=== PATIENT | male | born 1955 | race Caucasian/White ===

== ENCOUNTER 2021-10-26 12:21 | Emergency (ER) | payer BC, SELFPAY ==
--- NOTE | ~2021-10-26 | CT_ITS ---
EXAMINATION: CT abdomen pelvis wo con DATE: 10/26/2021 14:11 INDICATION: Left-sided flank and back pain TECHNIQUE: Computed tomography (CT) of the abdomen and pelvis was performed without intravenous contr ast. The dose-length product was 842.51 mGy-cm. Automated exposure control and iterative reconstructi on technique were employed. COMPARISON: None. FINDINGS: Lung bases are unremarkable. Heart size normal. Small hiatal hernia. There is atheroscleros is. No evidence for aneurysm. No lymphadenopathy. Small fat-containing left inguinal hernia. Colonic diverticulosis without evidence for diverticulitis. Bladder is decompressed. There might be mild blad ifrah wall thickening. Prostate gland is enlarged. No free air or free fluid. No renal/ureteral stone or hydronephrosis. Gallbladder is present. The liver, pancreas, adrenal gland s are unremarkable. There is splenomegaly. IMPRESSION: 1. Splenomegaly. 2: Possible mild bladder wall thickening, although bladder is not well distended. Consider cystitis and hypertrophy secondary to outlet obstruction. 3: Small hiatal hernia. Reviewed, dictated and finalized at location A. IMPRESSION: 1. Splenomegaly. 2: Possible mild bladder wall thickening, although bladder is not well distend ed. Consider cystitis and hypertrophy secondary to outlet obstruction. 3: Small hiatal hernia.
[2021-10-26 12:23] VITALS: BP 199/101; PULSE 59; RESP 16; TEMP 36.4; O2SAT 99
[2021-10-26] MEDS: KETOROLAC 30 MG/ML VIAL (*BKC) IM (13:00)
[2021-10-26 13:05] LABS: Basophils Absolute Auto 0.1 K/mm3 (0.0-0.1); Basophils Percent Auto 0.6 % (0.2-1.2); Eosinophils Absolute Auto 0.1 K/mm3 (0-0.3); Eosinophils Percent Auto 0.7 % (0-4.4); Hematocrit 47.1 % (42.0-52.0); Hemoglobin 16.4 g/dL (14.0-18.0); Immature Granulocyte Absolute 0.06 K/mm3 (0.00-0.031); Immature Granulocyte Percent A 0.5 % (0-0.5); Lymphocytes Absolute Auto 2.62 K/mm3 (0.9-3.2); Lymphocytes Percent Auto 21.4 % (18.3-44.2); Mean Corpuscular HGB Conc 34.8 g/dl (32-36); Mean Corpuscular Hemoglobin 32.8 pg (26-34); Mean Corpuscular Volume 94.2 fl (80-100); Mean Platelet Volume 9.8 fl (7.4-10.4); Monocytes Absolute Auto 1.3 K/mm3 (0.1-0.6); Monocytes Percent Auto 10.6 % (2.6-8.5); Neutrophils Absolute Auto 8.1 K/mm3 (1.3-6.7); Neutrophils Percent Auto 66.2 % (45.5-73.1); Platelet Count Result 194 k/mm3 (150-375); Red Cell Distribution Width 12.8 % (11.5-14.5); White Blood Count 12.3 K/mm3 (4.5-10.0)
[2021-10-26 13:06] LABS: Appearance Urine Slightly Cloudy (Clear); Bilirubin Urine 1+ (Negative); Blood Urine Negative (Negative); Color Urine Yellow (Yellow); Glucose Urine UA Negative (Negative); Ketones Urine Negative (Negative); Leukocyte Esterase Ur Negative LEU/UL (Negative); Nitrate Urine Negative (Negative); Protein Urine Negative (Negative); Specific Grav Ur >= 1.030 (1.001-1.035); Urobilinogen Urine 0.2 mg/dL (<2.0); pH Urine 5.5 (5.0-9.0)
[2021-10-26 13:10] LABS: Add Urine Microscopic? YES; Mucus Urine Rare /lpf; RBC Urine 0-2 /hpf (0-2); WBC Urine 0-3 /hpf
[2021-10-26 13:14] LABS: Alanine Aminotransferase 39 U/L (6-50); Albumin Level 5.4 g/dL (3.5-5.1); Alkaline Phosphatase 79 U/L (38-126); Anion Gap 12 mmol/L (8-16); Aspartate Amino Transferase 36 U/L (17-59); Bilirubin,Total 1.3 mg/dL (0.2-1.3); Blood Urea Nitrogen 16 mg/dL (9-20); Calcium 9.9 mg/dL (8.4-10.2); Carbon Dioxide 26 mmol/L (22-30); Chloride 104 mmol/L (98-107); Estimated CRCL calculation 69 ml/min; Estimated Glomerular Filt Rate > 60; Glucose 127 mg/dL (65-110); Potassium 4.1 mmol/L (3.4-5.0); Sodium 142 mmol/L (137-145)
[2021-10-26 13:33] VITALS: BP 164/94; PULSE 55; RESP 18; O2SAT 99
--- NOTE | 2021-10-26 13:35 | ED.BACK ---
HPI - Back Pain/Injury General Chief Complaint: Back Pain/Injury Stated Complaint: back pain Time Seen by Provider: 10/26/21 12:29 Source: patient and RN notes reviewed Mode of arrival: ambulatory Limitations: no limitations History of Present Illness HPI Narrative: This is a 66 year old male with history of CAD, CABG who presents presents for evaluation of back pain. He states he has chronic back issues but he started having flare up 1 week ago. He developed worsening pain on . Most of his pain is located left lower back , and he also report intermittent bilateral lower back pain. His pain radiates to left thigh occasionally. He has been taking ibuprofen and tylenol for his pain. He has been trying heat on his back, and he states he has some improvement. He rates his pain 4/10 currently , but he states his pain was 8 with walking. He is concerned about abdominal obstruction because he has been havin small bowel movements today. He denies any abdominal pain. He has associated nausea but no vomiting, fever, hematuria or dysuria. He denies leg weakness, numbness , tingling, saddle anesthesia, urinary retention or bowel incontinence. Related Data Allergies Allergy/AdvReac Type Severity Reaction Status Date / Time Sulfa (Sulfonamide Allergy RASH Verified 10/26/21 12:22 Antibiotics) venom-honey bee Allergy LOCAL Verified 10/26/21 12:22 Review of Systems Review of Systems: All systems reviewed & are unremarkable except as noted in HPI and below Constitutional: Constitutional: Denies chills and Denies fatigue Cardiovascular: Cardiovascular: Denies chest pain and Denies rapid heart rate Respiratory: Respiratory: Denies chest congestion Gastrointestinal: Gastrointestinal: Reports bloating, Reports constipation and Reports nausea Genitourinary: Genitourinary: Denies hematuria and Denies dysuria Musculoskeletal: Musculoskeletal: Reports back pain, Denies arthralgias and Denies joint swelling Neurologic: Denies focal weakness, Denies numbness and Denies weakness PMF Past Medical History Medical History (Updated 10/26/21 @ 19:16 by Valery Melgoza MD) Gout Heart disease (organic) Hypertension Surgical History Surgical History (Updated 10/26/21 @ 19:16 by Valery Melgoza MD) Hx of CABG Social History Social History (Updated 10/26/21 @ 19:16 by Valery Melgoza MD) Smoking status: Never smoker Exam Narrative: GENERAL: Well-appearing, well-nourished, and in no acute distress. HEAD: Normocephalic, atraumatic RESPIRATORY: No respiratory distress, Airway patent, Respirations non-labored, Clear to auscultation without rales, rhonchi or wheeze HEART: Regular rate and rhythm. No murmur heard. Normal peripheral pulses. ABDOMEN: Soft, nontender, nondistended, normal active bowel sounds. No masses. No rebound or guarding, No organomegaly. EXTREMITIES: No edema, normal strength with full range of motion. SKIN: Warm, dry, normal color without rash NEURO: Alert and oriented x3. CN 2-12 grossly intact. No focal deficits. PSYCH: Normal mood and affect. Back/Spine/Pelvis: Thoracic/Lumbar Spine: No thoracic spinal tenderness, No lumbar spinal tenderness and No straight leg raise positive Course Reevaluation(s) Reevaluation #1: I discussed with patient CT results shows splenomegaly and enlarge prostate. No Uti . he will be treatment for MSK back pain with muscle relaxers Date: 10/26/21 Time: 15:40 Vital Signs Vital signs: Vital Signs Temperature 97.6 F 10/26/21 12:23 Pulse Rate 59 L 10/26/21 12:23 Respiratory Rate 16 10/26/21 12:23 Blood Pressure 199/101 H 10/26/21 12:23 Pulse Oximetry 99 10/26/21 12:23 Temperature 97.6 F 10/26/21 12:23 Pulse Rate 56 L 10/26/21 16:05 Respiratory Rate 18 10/26/21 16:05 Blood Pressure 160/98 H 10/26/21 16:05 Pulse Oximetry 99 10/26/21 13:33 MDM - Back Pain/Injury Lab Data Attestation: I reviewed the kelly
--- NOTE | 2021-10-26 14:04 | PC.NURSE ---
PT to ct scan
[2021-10-26 16:05] VITALS: BP 160/98; PULSE 56; RESP 18
== END 2021-10-26 16:05 | disposition home or self-care (01) ==
PROVIDERS: Emergency Provider General Practice; PCP Family Medicine Sports Medicine
DX: S39.012A Strain of muscle, fascia and tendon of lower back, initial encounter (principal); R10.9 Unspecified abdominal pain; I25.10 Atherosclerotic heart disease of native coronary artery without angina pectoris; I11.9 Hypertensive heart disease without heart failure; M10.9 Gout, unspecified; Z95.1 Presence of aortocoronary bypass graft; R16.1 Splenomegaly, not elsewhere classified; K44.9 Diaphragmatic hernia without obstruction or gangrene; R93.41 Abnormal radiologic findings on diagnostic imaging of renal pelvis, ureter, or bladder; X58.XXXA Exposure to other specified factors, initial encounter
CPT/HCPCS: 36415; 74176; 80053; 81001; 85025; 96372; 99284; J1885

== ENCOUNTER 2025-03-31 08:09 | Outpatient (CLI) | payer BC, SELFPAY ==
--- NOTE | 2025-03-31 | ECG_ITS ---
Test Date: 2025-03-31 08:46:26 Measurements Intervals [place] Rate: 54 P: 49 OK: 150 QRS: 63 QRSD: 129 T: 57 QT: 452 QTc: 430 Interpretive Statements SINUS BRADYCARDIA RIGHT BUNDLE BRANCH BLOCK BASELINE ARTIFACT- I, II, AVR ABNORMAL ECG No previous ECG available for comparison Electronically Signed On 03-31-2025 08:51:50 [employer] by Abhishek Connolly D.O.
[2025-03-31 09:13] LABS: Hematocrit 39.8 % (42.0-52.0); Hemoglobin 14.0 g/dL (14.0-18.0); Immature Granulocyte Percent A 0.4 % (0-0.5); Lymphocytes Absolute Auto 2.18 K/mm3 (0.9-3.2); Mean Corpuscular HGB Conc 35.2 g/dl (32-36); Mean Corpuscular Hemoglobin 33.5 pg (26-34); Mean Corpuscular Volume 95.2 fl (80-100); Nucleated Red Blood Cells Absolute Auto 0.000 K/mm3 (0.0-0.012); Nucleated Red Blood Cells Perc 0.0 % (0.0-0.2); Platelet Count Result 141 k/mm3 (150-375); Red Blood Count 4.18 M/mm3 (4.6-6.20); White Blood Count 8.1 K/mm3 (4.5-10.0)
[2025-03-31 09:16] LABS: Add Urine Microscopic? NO; Appearance Urine Clear (Clear); Glucose Urine UA Negative (Negative); Leukocyte Esterase Ur Negative LEU/UL (Negative); Nitrate Urine Negative (Negative); Specific Grav Ur 1.017 (1.001-1.035)
[2025-03-31 09:34] LABS: Alanine Aminotransferase 50 U/L (6-50); Albumin Level 4.6 g/dL (3.5-5.1); Alkaline Phosphatase 73 U/L (38-126); Anion Gap 10 mmol/L (4-12); Aspartate Amino Transferase 43 U/L (17-59); Bilirubin,Total 0.9 mg/dL (0.2-1.3); Blood Urea Nitrogen 25 mg/dL (9-20); Calcium 9.5 mg/dL (8.4-10.2); Carbon Dioxide 22 mmol/L (22-30); Chloride 105 mmol/L (98-107); Cholesterol 157 mg/dL (0-200); Estimated Glomerular Filt Rate > 60; Glucose 115 mg/dL (65-110); HDL Direct 37 mg/dL; Potassium 4.6 mmol/L (3.4-5.0); Sodium 137 mmol/L (137-145); Total Protein 7.3 g/dL (6.3-8.2); Triglycerides 205 mg/dL (<150)
[2025-03-31 10:10] LABS: Thyroid Stimulating Hormone 1.350 uIU/mL (0.465-4.680)
== END 2025-03-31 08:10 | disposition home or self-care (01) ==
PROVIDERS: PCP Family Medicine; Visit Provider Nurse Practitioner
DX: Z01.818 Encounter for other preprocedural examination (principal); R94.31 Abnormal electrocardiogram [ECG] [EKG]; I25.10 Atherosclerotic heart disease of native coronary artery without angina pectoris
CPT/HCPCS: 36415; 80053; 80061; 81003; 84443; 85025; 93005